=== PATIENT | male | born 1985 | race Caucasian/White ===

== ENCOUNTER 2019-08-26 13:19 | Emergency (ER) | payer OTHER, SELFPAY ==
--- NOTE | 2019-08-26 13:27 | ED.GENADULT ---
HPI - General Adult General Chief complaint: Upper Respiratory Infection Stated complaint: diarrhea/sore throat/cough/vomiting/devine Time Seen by Provider: 08/26/19 13:42 Source: patient Mode of arrival: ambulatory Limitations: no limitations History of Present Illness HPI narrative: 34-year-old male patient presents to the [facility] with complaints of cold symptoms for the past 1 to 2 weeks. Patient states he started off with some diarrhea that has gotten better. Patient states he has had cough, sneezing, fevers, body aches, nausea and vomiting. Patient states that he did vomit last night. Patient states that he has been able to keep down clear fluids today. Patient states he has been taking [id number] Mucinex and Tylenol for his symptoms. Denies being a smoker. Patient states he did get a flu shot this year. Related Data Allergies Allergy/AdvReac Type Severity Reaction Status Date / Time No Known Allergies Allergy Verified 08/26/19 13:41 Review of Systems Review of Systems: Narrative: CONSTITUTIONAL: Positive subjective fever, chills, and sweats. EYES: Denies visual changes, redness, or discharge. ENT: Positive rhinorrhea, congestion, sore throat, denies otalgia. CARDIOVASCULAR: Denies chest pain, palpitations, or edema. RESPIRATORY: Positive cough, denies dyspnea. GASTROINTESTINAL: Denies abdominal pain, positive nausea, vomiting, and diarrhea. GENITOURINARY: Denies dysuria or hematuria. SKIN: Denies rash or itching. MUSCULOSKELETAL: Denies back pain, joint pain, or myalgia. NEUROLOGIC: Denies headache, numbness, or weakness. PSYCHIATRIC: Denies anxiety or depression. PMFSH Social History Social History Smoking status: Never smoker Second hand tobacco smoke exposure: No Alcohol intake: current Comments At the time of my signature I agree with nursing past medical history, surgical, social, and family history. There is no relevant family history pertinent to the presenting complaint. Exam Narrative: Exam Narrative: GENERAL: Well-appearing, well-nourished, and in no acute distress. HEAD: Normocephalic, atraumatic. No tenderness noted to frontal maxillary sinuses on palpation EYES: PERRLA and EOMI. ENT: Nares with erythema and edema noted bilaterally, no rhinorrhea or epistaxis. Mucous membranes moist. Posterior pharynx with no erythema, tonsillar edema, exudates or lesions present. Bilateral TMs are clear no erythema or foreign bodies in the canal. NECK: Supple. No lymphadenopathy CHEST: Clear to auscultation. No respiratory distress. HEART: Regular rate and rhythm. No murmur heard. Normal peripheral pulses. ABDOMEN: Soft, nontender, nondistended, normal active bowel sounds. EXTREMITIES: Normal range of motion. No edema. SKIN: Warm, dry, no rash. NEURO: No focal deficits. Alert and oriented x3. Course Vital Signs Vital signs: Vital Signs Temperature 37.9 C H 08/26/19 13:36 Pulse Rate 73 08/26/19 13:36 Respiratory Rate 20 08/26/19 13:36 Blood Pressure 121/79 08/26/19 13:36 Pulse Oximetry 99 08/26/19 13:36 Temperature 37.9 C H 08/26/19 13:36 Pulse Rate 73 08/26/19 13:36 Respiratory Rate 20 08/26/19 13:36 Blood Pressure 121/79 08/26/19 13:36 Pulse Oximetry 99 08/26/19 13:36 Vital signs reviewed Medical Decision Making Differential Diagnosis Differential Diagnosis: Differential diagnosis: Allergic rhinitis, chronic sinusitis, tonsillitis, acute sinusitis, infectious mononucleosis, seasonal influenza, pertussis, diphtheria, meningococcal disease, viral syndrome, viral bronchitis, RSV. Discussed with patient that his influenza and strep tests are both negative today. Discussed with patient I am to discharge him home with some Ramon Landry to hopefully help with the cough as well as Zoë to help with the nausea and vomiting however if he develops worsening symptoms such as chest pain, shortness of breath abdom
[2019-08-26 13:36] VITALS: BP 121/79; PULSE 73; RESP 20; TEMP 37.9; O2SAT 99
== END 2019-08-26 14:08 | disposition home or self-care (01) ==
PROVIDERS: Emergency Provider Nurse Practitioner Family; PCP Internal Medicine
DX: J06.9 Acute upper respiratory infection, unspecified (principal); R05 Cough; R11.2 Nausea with vomiting, unspecified; R19.7 Diarrhea, unspecified; I10 Essential (primary) hypertension; F32.9 Major depressive disorder, single episode, unspecified
CPT/HCPCS: 87081; 87804; 87880; 99203; G0463

== ENCOUNTER 2022-05-19 11:41 | Emergency (ER) | payer OTHER, SELFPAY ==
[2022-05-19 14:12] VITALS: BP 143/108; PULSE 80; RESP 16; TEMP 36.8; O2SAT 98
--- NOTE | 2022-05-19 14:29 | ED.GENADULT ---
HPI - General Adult General Chief complaint: Upper Respiratory Infection Stated complaint: sore throat Time Seen by Provider: 05/19/22 14:29 Source: patient Mode of arrival: ambulatory Limitations: no limitations History of Present Illness HPI narrative: 36-year-old male patient presents to the [facility] with complaints of a sore throat that started this past Friday. Patient states he does get chronic strep throat pretty often. Patient denies any other sick symptoms at this time including fever, body aches or chills. Patient states he has been doing warm salt water gargles for treatment at home. Related Data Home Medications Medication Instructions Recorded Confirmed Descovy 05/19/22 Allergies Allergy/AdvReac Type Severity Reaction Status Date / Time No Known Allergies Allergy Verified 05/22/21 15:46 Review of Systems Review of Systems: CONSTITUTIONAL: Denies fever, chills, or sweats. EYES: Denies visual changes, redness, or discharge. ENT: Denies rhinorrhea, congestion, positive sore throat, denies otalgia. CARDIOVASCULAR: Denies chest pain, palpitations, or edema. RESPIRATORY: Denies cough or dyspnea. GASTROINTESTINAL: Denies abdominal pain, nausea, vomiting, or diarrhea. GENITOURINARY: Denies dysuria or hematuria. SKIN: Denies rash or itching. MUSCULOSKELETAL: Denies back pain, joint pain, or myalgia. NEUROLOGIC: Denies headache, numbness, or weakness. PSYCHIATRIC: Denies anxiety or depression. [facility] Past Medical History Medical History (Updated 05/19/22 @ 14:40 by CHRISSIE Willson) Depression History of strep sore throat Hypertension Social History Social History Smoking status: Never smoker Second hand tobacco smoke exposure: No Alcohol intake: current Drinks per week: 3 Substance use: never Comments At the time of my signature I agree with nursing past medical history, surgical, social, and family history. There is no relevant family history pertinent to the presenting complaint. Exam Narrative: GENERAL: Well-appearing, well-nourished, and in no acute distress. HEAD: Normocephalic, atraumatic. EYES: PERRLA and EOMI. ENT: Nares clear, no rhinorrhea or epistaxis. Mucous membranes moist. Posterior pharynx with slight erythema no tonsillar enlargement, no exudates no lesions present. NECK: Supple. No lymphadenopathy CHEST: Clear to auscultation. No respiratory distress. HEART: Regular rate and rhythm. No murmur heard. Normal peripheral pulses. ABDOMEN: Soft, nontender, nondistended, normal active bowel sounds. EXTREMITIES: Normal range of motion. No edema. SKIN: Warm, dry, no rash. NEURO: No focal deficits. Alert and oriented x3. Course Course Level of Care: Express Care Visit Vital Signs Vital signs: Vital signs reviewed. The patient has been informed that they may have pre-hypertension or Hypertension based on a BP reading in the department. I recommend that the patient call the primary care provider listed on their discharge instructions or a physician of their choice this week to arrange follow up for further evaluation of possible pre-hypertension or Hypertension Medical Decision Making MDM Narrative Medical decision making narrative: Discussed with patient that he is positive today for strep throat. Discussed with patient we will discharge him home with antibiotics for the strep throat infection. Did discuss patient about his hypertension today and highly advise that he follow-up with his primary doctor for continued evaluation and possible medication treatment. Differential Diagnosis Differential Diagnosis: Differential diagnosis: Allergic rhinitis, chronic sinusitis, tonsillitis, acute sinusitis, infectious mononucleosis, seasonal influenza, pertussis, diphtheria, meningococcal disease, viral syndrome, viral bronchitis, RSV, COVID-19 Viral pharyngitis, pharyngitis, group A strep, infectious mononucleosis, gono
== END 2022-05-19 14:40 | disposition home or self-care (01) ==
PROVIDERS: Emergency Provider Nurse Practitioner Family
DX: J02.0 Streptococcal pharyngitis (principal); I10 Essential (primary) hypertension
CPT/HCPCS: 87880; 99213; G0463

== ENCOUNTER 2022-09-25 09:11 | Outpatient (CLI) | payer OTHER, SELFPAY ==
--- NOTE | 2022-09-25 11:00 | NEURO_ITS ---
Impression: Patient reports a history of numbness in medial aspect of left hand. He also has a history of Cubital Tunnel Syndrome. # Normal nerve conduction study. # Normal needle/EMG exam. # Clinical correlation recommended. Motor Nerve Conduction Upper Extremities Median Nerve Conduction Velocity (m/sec) Terminal Latency (msec) Response Voltage(mV) Elbow-Wrist Wrist Elbow Wrist Right Left 59 2.7 4 7 Ulnar Nerve Conduction Velocity (m/sec) Terminal Latency (msec) Response Voltage(mV) Above Elbow Below Elbow Wrist Above Elbow Below Elbow Wrist Right Left 60 61 2.0 7 7 8 F-Wave Latency Median (ms) Ulnar (ms) Right Left 24.8 25.3 Sensory Nerve Conduction Upper Extremities Median Nerve Stimulation Terminal Latency (msec) Wrist/Digit Response Voltage (uV) Wrist Right Left 3.2/3.3 74/88 Ulnar Nerve Stimulation Terminal Latency (msec) Wrist/Digit Response Voltage (uV) Wrist Right Left 2.4 45 Radial Nerve Terminal Latency (msec) Response Voltage(mV) Right Left 1.5 25 Left Right Muscles Examined Fibrillation Fasciculation Scarcity Voltage Duration Left Right Left Right Left Right Left Right Left Right Deltoid Biceps X Brachioradialis Triceps X Pronator Teres X Ext Indicis X Ext Digitorum X Abd Poll Brev X 1st Dorsal Interosseus Abd Dig Min MTDD
== END 2022-09-25 09:12 | disposition home or self-care (01) ==
PROVIDERS: PCP Physician Assistant; Visit Provider Physician Assistant
DX: G56.22 Lesion of ulnar nerve, left upper limb (principal)
CPT/HCPCS: 95886; 95909

== ENCOUNTER 2023-08-16 13:16 | Emergency (ER) | payer OTHER, SELFPAY ==
--- NOTE | 2023-08-16 13:41 | ED.URI ---
HPI - URI/Sore Throat General Chief Complaint: Upper Respiratory Infection Stated Complaint: headache,cough,chills Time Seen by Provider: 08/16/23 13:53 Source: patient and RN notes reviewed Mode of arrival: ambulatory Limitations: no limitations History of Present Illness HPI Narrative: 38-year-old male presents with concern of for 2 day history of sinus congestion, cough, headache, chills. Reports he has been taking Tylenol and using a Neti pot. MD elicited complaint: cough and sinus pain Related Data Home Medications Medication Instructions Recorded Confirmed Descovy 05/19/22 atorvastatin 20 mg tablet mg 08/16/23 Allergies Allergy/AdvReac Type Severity Reaction Status Date / Time No Known Allergies Allergy Verified 05/22/21 15:46 Review of Systems Review of Systems: CONSTITUTIONAL: Denies malaise, chills. Did sweats or fever. EYES: Denies visual changes, redness, or discharge. ENT: Reports rhinorrhea, congestion, sinus pain CARDIOVASCULAR: Denies chest pain, palpitations, or edema. RESPIRATORY: Reports cough. Denies dyspnea. GASTROINTESTINAL: Denies abdominal pain, nausea, vomiting, diarrhea SKIN: Denies rash or itching. MUSCULOSKELETAL: Reports myalgia. NEUROLOGIC: Reports headache. All systems reviewed & are unremarkable except as noted in HPI and below PMFSH Past Medical History Medical History (Updated 08/16/23 @ 14:00 by Shannon Cheung NP) Depression History of strep sore throat Hypertension Social History Social History Smoking status: Never smoker Second hand tobacco smoke exposure: No Alcohol intake: current Drinks per week: 3 Substance use: never Comments At time of signature, agree with nursing past medical, surgical, social and family history. There is no relevant family history pertinent to the presenting complaint Exam Narrative: GENERAL: Well-appearing, well-nourished, and in no acute distress. HEAD: Normocephalic EYES: PERRLA, conjunctivae clear ENT: Nares clear, turbinates edematous and erythematous, clear discharge. Mucous membranes moist. TM pearly angel with sharp light reflex bilaterally; no tragal tenderness. Oropharynx not erythematous without lesions. Tonsils not enlarged and without exudate, no drooling, no hoarseness, no trismus, uvula midline. NECK: Supple. No lymphadenopathy CHEST: Clear to auscultation, breath sounds equal. No wheezing, rhonchi, rales, or stridor. No respiratory distress, speaks in full sentences. HEART: Regular rate and rhythm. No murmur heard. SKIN: Warm, dry, no rash. NEURO: Alert and oriented x3. PSYCH: Normal mood and affect Course Course Emergency Course: Patient is aware of diagnosis, understands and agrees to treatment plan. Anticipatory guidance given. Patient agrees to follow-up as directed and is aware of reasons to seek care at the emergency department. Portions of this record may have been created with voice recognition software Level of Care: Express Care Visit Vital Signs Vital signs: Reviewed. MDM - URI/Sore Throat MDM Narrative Medical decision making narrative: Differential diagnosis considered: Clemens virus, strep pharyngitis, allergic rhinitis, upper respiratory tract infection, sinusitis, rhinosinusitis, nasopharyngitis. viral pharyngitis, otitis media, otitis externa, pneumonia, bronchitis, viral cough syndrome, viral syndrome, and influenza. Exam findings show no acute concerns or changes; patient is non-toxic appearing and is in no distress. Patient is appropriate for outpatient treatment and follow-up. Lab Data Attestation: I reviewed the patient's lab results. Critical Care Time Critical Care Time Critical Care Time: No Discharge Plan Discharge Clinical Impression: COVID Patient Disposition: Home, Self-Care Condition: Stable Instructions: How to Recover from COVID-19 at Home (ED) Additional Instructions: Your rapid CO
[2023-08-16 13:43] VITALS: BP 121/92; PULSE 109; RESP 20; TEMP 37.8; O2SAT 98
== END 2023-08-16 14:05 | disposition home or self-care (01) ==
PROVIDERS: Emergency Provider Nurse Practitioner; PCP Physician Assistant
DX: U07.1 COVID-19 (principal); I10 Essential (primary) hypertension
CPT/HCPCS: 87426; 87804; 99213; G0463

== ENCOUNTER 2023-11-03 17:00 | Emergency (ER) | payer OTHER, SELFPAY ==
[2023-11-03 17:09] VITALS: BP 136/94; PULSE 72; RESP 16; TEMP 36.5; O2SAT 98
--- NOTE | 2023-11-03 17:18 | ED.SKABFB ---
HPI - Skin/Abscess/Foreign Bdy General Chief complaint: Skin/Abscess/Foreign Body Stated complaint: herpes II' outbreak Time Seen by Provider: 11/03/23 17:18 Source: patient Mode of arrival: ambulatory Limitations: no limitations History of Present Illness HPI narrative: 38-year-old male presents with complaint of herpes outbreak to penis for 3 days. Patient states history of herpes type to. Diagnosis sometime last year. Has had 3 outbreaks since. Is not on a preventative antiviral. All systems reviewed and negative except as noted above. Related Data Home Medications Medication Instructions Recorded Confirmed atorvastatin 20 mg tablet 20 mg PO DAILY 08/16/23 11/03/23 emtricitabine 200 mg-tenofovir 1 tablet PO DAILY 11/03/23 11/03/23 alafenamide fumarate 25 mg tablet (Descovy) hydrochlorothiazide 25 mg tablet 25 mg PO DAILY 11/03/23 11/03/23 Allergies Allergy/AdvReac Type Severity Reaction Status Date / Time No Known Allergies Allergy Verified 11/03/23 17:06 Review of Systems Review of Systems: CONSTITUTIONAL: Denies fever, chills, or sweats. EYES: Denies visual changes, redness, or discharge. ENT: Denies rhinorrhea, congestion, sore throat, or otalgia. CARDIOVASCULAR: Denies chest pain, palpitations, or edema. RESPIRATORY: Denies cough or dyspnea. GASTROINTESTINAL: Denies abdominal pain, nausea, vomiting, or diarrhea. GENITOURINARY: Denies dysuria or hematuria. SKIN: Denies rash or itching. Reports her pees outbreak to penis. MUSCULOSKELETAL: Denies back pain, joint pain, or myalgia. NEUROLOGIC: Denies headache, numbness, or weakness. PSYCHIATRIC: Denies anxiety or depression. All other systems reviewed are negative, except as documented in HPI. [facility] Past Medical History Medical History (Updated 11/03/23 @ 17:24 by Leanna Batres NP) Depression History of strep sore throat Hypertension Social History Social History Smoking status: Never smoker Second hand tobacco smoke exposure: No Alcohol intake: current Drinks per week: 3 Substance use: never Comments At time of signature, agree with nursing past medical, surgical, social and family history. There is no relevant family history pertinent to the presenting complaint. Exam Narrative: GENERAL: This is a well-nourished, well-developed patient, in no apparent distress. HEAD: normocephalic, atraumatic. EYES: PERRL. Sclera clear/white. Vision is grossly intact. EARS: External ears normal NOSE: External nose normal NECK: Neck supple, non-tender without lymphadenopathy, masses or thyromegaly. CARDIOVASCULAR: Regular rate and rhythm without murmurs, gallops, or rubs. RESPIRATORY: Clear to auscultation. Breath sounds equal bilaterally. No wheezes, rales, or rhonchi. SKIN: warm, Dry, intact with no suspicious rash, good texture and turgor. Several erythematous vesicular lesions to shaft of penis NEURO: awake, alert, and oriented to person, place and time. There were no obvious focal neurologic abnormalities. EXTREMITIES: No joint tenderness, effusion, or edema noted. Course Course Level of Care: Express Care Visit Vital Signs Vital signs: Vital Signs Temperature 36.5 C 11/03/23 17:09 Pulse Rate 72 11/03/23 17:09 Respiratory Rate 16 11/03/23 17:09 Blood Pressure 136/94 H 11/03/23 17:09 Pulse Oximetry 98 11/03/23 17:09 Oxygen Delivery Room Air 11/03/23 17:09 Temperature 36.5 C 11/03/23 17:09 Pulse Rate 72 11/03/23 17:09 Respiratory Rate 16 11/03/23 17:09 Blood Pressure 136/94 H 11/03/23 17:09 Pulse Oximetry 98 11/03/23 17:09 Oxygen Delivery Room Air 11/03/23 17:09 reviewed MDM - Skin/Abscess/Foreign Bdy MDM Narrative Medical decision making narrative: Patient is aware of diagnosis, understands and agrees to treatment plan. Anticipatory guidance given. Patient agrees to follow-up as directed and i
== END 2023-11-03 17:27 | disposition home or self-care (01) ==
PROVIDERS: Emergency Provider Nurse Practitioner Family; PCP Physician Assistant
DX: A60.01 Herpesviral infection of penis (principal); I10 Essential (primary) hypertension; F32.A Depression, unspecified
CPT/HCPCS: 99213; G0463

== ENCOUNTER 2024-01-01 12:35 | Emergency (ER) | payer OTHER, SELFPAY ==
[2024-01-01 13:03] VITALS: BP 118/93; PULSE 90; RESP 16; TEMP 36.6; O2SAT 99
--- NOTE | 2024-01-01 13:37 | ED.MALEGU ---
HPI - Male Genitourinary General Chief complaint: Urogenital-Male Stated complaint: outbreak Time Seen by Provider: 01/01/24 13:37 Source: patient Mode of arrival: ambulatory Limitations: no limitations History of Present Illness HPI Narrative: 38 yo M presents with c/o herpes lesions to penis starting yesterday. hx of outbreak beginning of october. Has not talked with primary care physician regarding a daily antibiotic. all systems reviewed and negative except as noted above. Related Data Home Medications Medication Instructions Recorded Confirmed atorvastatin 20 mg tablet 20 mg PO DAILY 08/16/23 11/03/23 emtricitabine 200 mg-tenofovir 1 tablet PO DAILY 11/03/23 11/03/23 alafenamide fumarate 25 mg tablet (Descovy) hydrochlorothiazide 25 mg tablet 25 mg PO DAILY 11/03/23 11/03/23 methylphenidate HCl 10 mg tablet 10 mg PO BID 01/01/24 01/01/24 Allergies Allergy/AdvReac Type Severity Reaction Status Date / Time No Known Allergies Allergy Verified 01/01/24 13:16 Review of Systems Review of Systems: CONSTITUTIONAL: Denies fever, chills, or sweats. EYES: Denies visual changes, redness, or discharge. ENT: Denies rhinorrhea, congestion, sore throat, or otalgia. CARDIOVASCULAR: Denies chest pain, palpitations, or edema. RESPIRATORY: Denies cough or dyspnea. GASTROINTESTINAL: Denies abdominal pain, nausea, vomiting, or diarrhea. GENITOURINARY: Denies dysuria or hematuria. Reports herpes lesions to penis. SKIN: Denies rash or itching. MUSCULOSKELETAL: Denies back pain, joint pain, or myalgia. NEUROLOGIC: Denies headache, numbness, or weakness. PSYCHIATRIC: Denies anxiety or depression. All other systems reviewed are negative, except as documented in HPI. [facility] Past Medical History Medical History (Updated 01/01/24 @ 13:45 by Leanna Batres NP) Depression History of strep sore throat Hypertension Social History Social History Smoking status: Never smoker Second hand tobacco smoke exposure: No Alcohol intake: current Drinks per week: 3 Substance use: never Comments At time of signature, agree with nursing past medical, surgical, social and family history. There is no relevant family history pertinent to the presenting complaint. Exam Narrative: GENERAL: This is a well-nourished, well-developed patient, in no apparent distress. HEAD: normocephalic, atraumatic. EYES: PERRL. Sclera clear/white. Vision is grossly intact. EARS: External ears normal NOSE: External nose normal NECK: Neck supple, non-tender without lymphadenopathy, masses or thyromegaly. CARDIOVASCULAR: Regular rate and rhythm without murmurs, gallops, or rubs. RESPIRATORY: Clear to auscultation. Breath sounds equal bilaterally. No wheezes, rales, or rhonchi. SKIN: warm, Dry, intact with no suspicious lesions or rash, good texture and turgor. NEURO: awake, alert, and oriented to person, place and time. There were no obvious focal neurologic abnormalities. EXTREMITIES: No joint tenderness, effusion, or edema noted. Course Course Level of Care: Express Care Visit Vital Signs Vital signs: Vital Signs Temperature 36.6 C 01/01/24 13:03 Pulse Rate 90 01/01/24 13:03 Respiratory Rate 16 01/01/24 13:03 Blood Pressure 118/93 H 01/01/24 13:03 Pulse Oximetry 99 01/01/24 13:03 Oxygen Delivery Room Air 01/01/24 13:03 Temperature 36.6 C 01/01/24 13:03 Pulse Rate 90 01/01/24 13:03 Respiratory Rate 16 01/01/24 13:03 Blood Pressure 118/93 H 01/01/24 13:03 Pulse Oximetry 99 01/01/24 13:03 Oxygen Delivery Room Air 01/01/24 13:03 Reviewed MDM - Male Genitourinary MDM Narrative Medical decision making narrative: Patient is aware of diagnosis, understands and agrees to treatment plan. Anticipatory guidance given. Patient agrees to follow-up as directed and is aware of reasons to seek care at the emergency department
== END 2024-01-01 13:47 | disposition home or self-care (01) ==
PROVIDERS: Emergency Provider Nurse Practitioner Family; PCP Physician Assistant
DX: A60.01 Herpesviral infection of penis (principal); I10 Essential (primary) hypertension
CPT/HCPCS: 99213; G0463

== ENCOUNTER 2024-06-26 14:57 | Emergency (ER) | payer OTHER, SELFPAY ==
[2024-06-26 15:05] VITALS: BP 127/91; PULSE 100; RESP 16; TEMP 36.4; O2SAT 100
--- NOTE | 2024-06-26 15:23 | ED.EYEPROB ---
HPI - Eye Problem General Chief complaint: Eye Problems Stated complaint: Right Eye Irritation Source: patient, RN notes reviewed and old records reviewed Mode of arrival: ambulatory Limitations: no limitations Related Data Home Medications ?Medication ?Instructions ?Recorded ?Confirmed ?Last Taken ?Type atorvastatin 20 mg tablet 20 mg PO DAILY 08/16/23 06/26/24 Unknown History emtricitabine 200 mg-tenofovir 1 tablet PO DAILY 11/03/23 06/26/24 Unknown History alafenamide fumarate 25 mg tablet (Descovy) hydrochlorothiazide 25 mg tablet 25 mg PO DAILY 11/03/23 06/26/24 Unknown History methylphenidate HCl 10 mg tablet 10 mg PO BID 01/01/24 06/26/24 Unknown History Allergies Allergy/AdvReac Type Severity Reaction Status Date / Time No Known Allergies Allergy Verified 06/26/24 14:59 Review of Systems Review of Systems: All systems reviewed & are unremarkable except as noted in HPI and below Constitutional: Constitutional: Reports no additional constitutional complaints ENT: Reports system reviewed and no additional complaints, except as documented Cardiovascular: Cardiovascular: Reports no additional cardiovascular complaints Respiratory: Respiratory: Reports no additional respiratory complaints Gastrointestinal: Gastrointestinal: Reports no additional gastrointestinal complaints [facility] Past Medical History Medical History (Updated 01/02/24 @ 00:00 by Carmelita Gaona) Depression History of strep sore throat Hypertension Social History Social History Smoking status: Never smoker Second hand tobacco smoke exposure: No Alcohol intake: current Drinks per week: 3 Substance use: never Comments At the time of my signature, I reviewed and agree with the nursing past medical, surgical, social, and family history. There is no relevant family history pertinent to the patient complaint. Exam Const: General: cooperative, no acute distress, alert and awake Orientation/consciousness: oriented to person, oriented to place and oriented to time HENMT: Head: normal to inspection Resp: Effort & Inspection: normal respiratory effort and able to speak in complete sentences Auscultation: clear to auscultation bilaterally, no crackles, no rales, no rhonchi and no wheezes Cardio: Palpation: normal PMI Rate: regular rate Rhythm: regular rhythm Heart sounds: S1 normal heart sound present and S2 normal heart sound present Neuro: General: oriented to person, oriented to place and oriented to time Cranial nerves: Yes CN's II-XII intact bilaterally Psych: Appearance: grossly normal Thought process: Normal thought process present Insight: Good insight present (Psych) Judgement: Good judgement present (Psych) Course Course Level of Care: Express Care Visit Vital Signs Vital signs: Vital Signs Temperature 97.5 F L 06/26/24 15:05 Pulse Rate 100 06/26/24 15:05 Respiratory Rate 16 06/26/24 15:05 Blood Pressure 127/91 H 06/26/24 15:05 Pulse Oximetry 100 06/26/24 15:05 Oxygen Delivery Room Air 06/26/24 15:05 Temperature 97.5 F L 06/26/24 15:05 Pulse Rate 100 06/26/24 15:05 Respiratory Rate 16 06/26/24 15:05 Blood Pressure 127/91 H 06/26/24 15:05 Pulse Oximetry 100 06/26/24 15:05 Oxygen Delivery Room Air 06/26/24 15:05 Reviewed Discharge Plan Discharge Patient Language: Divehi Prescriptions: No Action hydrochlorothiazide 25 mg tablet 25 mg PO DAILY Descovy 200-25 mg tablet 1 tablet PO DAILY valacyclovir 1 gram tablet 1,000 mg PO DAILY 5 Days Qty: 5 0RF atorvastatin 20 mg tablet 20 mg PO DAILY methylphenidate HCl 10 mg tablet 10 mg PO BID valacyclovir 1 gram tablet 1,000 mg PO DAILY 5 Days Qty: 5 0RF escitalopram oxalate 20 mg tablet 20 mg PO DAILY Qty: 30 2RF bupropion HCl [Wellbutrin SR] 200 mg tablet sustained-release 12 hr 200 mg PO QAM Qty: 30 4RF Follow-up/Referrals: Denny,HARSHIL Espinal [Primary Care Provider] -
== END 2024-06-26 15:41 | disposition left against medical advice (07) ==
LOC: EXPCOLL 14:59
PROVIDERS: Emergency Provider Nurse Practitioner Family; PCP Physician Assistant
DX: Z53.21 Procedure and treatment not carried out due to patient leaving prior to being seen by health care provider (principal)
CPT/HCPCS: 99199

== ENCOUNTER 2024-06-29 16:02 | Emergency (ER) | payer OTHER, SELFPAY ==
[2024-06-29 16:12] VITALS: BP 129/94; PULSE 89; RESP 16; TEMP 36.8; O2SAT 99
--- NOTE | 2024-06-29 16:13 | ED_ITS ---
HPI - Eye Problem General Chief complaint: Eye Problems Stated complaint: [place] eye symptoms Time Seen by Provider: 06/29/24 16:15 Source: patient Mode of arrival: ambulatory Limitations: no limitations History of Present Illness HPI Narrative: Alon is a 39-year-old male patient to the clinic today with complaints of right possible pinkeye. He reports he has had eye irritation, watering, and itchiness for the past 2-3 days. States the eye lid has now become swollen. He denies any fevers, chills, body aches, or orbital pain. No visual changes Related Data Home Medications ?Medication ?Instructions ?Recorded ?Confirmed ?Last Taken ?Type atorvastatin 20 mg tablet 20 mg PO DAILY 08/16/23 06/26/24 Unknown History emtricitabine 200 mg-tenofovir 1 tablet PO DAILY 11/03/23 06/26/24 Unknown History alafenamide fumarate 25 mg tablet (Descovy) hydrochlorothiazide 25 mg tablet 25 mg PO DAILY 11/03/23 06/26/24 Unknown History methylphenidate HCl 10 mg tablet 10 mg PO BID 01/01/24 06/26/24 Unknown History Allergies Allergy/AdvReac Type Severity Reaction Status Date / Time No Known Allergies Allergy Verified 06/26/24 14:59 Review of Systems Review of Systems: Pertinent positives per HPI. Patient denies any fever, chills, rash, headache, visual changes, dizziness, cough, runny nose, sore throat, shortness of breath, chest pain, palpitations, nausea, vomiting, diarrhea, constipation, abdominal pain, or any urinary issues. [facility] Past Medical History Medical History (Updated 06/29/24 @ 16:17 by Alber Galeano APRN) Depression History of strep sore throat Hypertension Social History Social History Smoking status: Never smoker Second hand tobacco smoke exposure: No Alcohol intake: current Drinks per week: 3 Substance use: never Comments At the time of my signature, I reviewed and agree with the nursing past medical, surgical, social, and family history. There is no relevant family history pertinent to the patient complaint. Exam Narrative: General: Well-developed, well nourished, in no apparent distress Head: Normocephalic, atraumatic Eyes: Pupils equally round and reactive to light bilaterally, EOM intact, left sclera and conjunctive clear, no discharge, lids normal, right sclera and conjunctiva injected with watery discharge and upper and lower lid swelling, nontender to palpation, no erythema or redness surrounding the eye Ears: TMs intact and clear, ear canals clear, no drainage, grossly hearing normal. Nose: Nares patent, no discharge, no inflammation, no sinus tenderness. Mouth: Oropharynx without lesions or masses, good dentition, MMM. Neck: Supple, trachea midline, no enlargement of anterior or posterior cervical nodes, no thyroid masses or goiter palpable. Cardio: Regular rate and rhythm, s1 and s2 normal, no murmur appreciated. Resp: Clear to auscultation bilaterally anteriorly and posteriorly, no rhonchi, rales, wheezing or rubs Course Course Emergency Course: Portions of this record may have been created with voice recognition software. Level of Care: Express Care Visit Vital Signs Vital signs: Vital Signs Temperature 36.8 C 06/29/24 16:12 Pulse Rate 89 06/29/24 16:12 Respiratory Rate 16 06/29/24 16:12 Blood Pressure 129/94 H 06/29/24 16:12 Pulse Oximetry 99 06/29/24 16:12 Oxygen Delivery Room Air 06/29/24 16:12 Temperature 36.8 C 06/29/24 16:12 Pulse Rate 89 06/29/24 16:12 Respiratory Rate 16 06/29/24 16:12 Blood Pressure 129/94 H 06/29/24 16:12 Pulse Oximetry 99 06/29/24 16:12 Oxygen Delivery Room Air 06/29/24 16:12 Vital signs reviewed MDM - Eye Problem MDM Narrative Medical decision making narrative: At the time of visit patient is resting comfortably on the exam table. Patient appears to be nontoxic. Plan: I suspect patient has conjunctivitis with localized eye lid swelling. Prescription for TobraDex eyedrops was sent to the pharmacy. Supportive measures were discussed with the patient and they voiced understanding discharge instructions and agrees to treatment plan. Return precautions reviewed Differential Diagnosis Differential diagnosis: Likely corneal abrasion, conjunctivitis, acute iritis, hyphema, periorbital cellulitis, subconjunctival hemorrhage, glaucoma, corneal ulcer and ruptured globe Discharge Plan Discharge Clinical Impression: Conjunctivitis Qualifiers: Conjunctivitis type: acute Acute conjunctivitis type: unspecified Laterality: right Qualified Code(s): H10.31 - Unspecified acute conjunctivitis, right eye Patient Disposition: Home, Self-Care Condition: Stable Instructions: Antibiotic Form, Conjunctivitis (ED) Additional Instructions: Conjunctivitis is considered contagious for 24 hours while on the antibiotic. Practice good hand washing techniques Avoid touching eyes Instill eyedrops as prescribed-tobradex May use warm moist washcloth to help remove eye discharge If eyes are matted shut-do not pry eyes open-use a warm moist cloth to loosen matting and wipe matter away from eye May take Tylenol/Motrin as needed for pain or fever May take Benadryl as needed for itching Follow-up with your PCP in 3-5 days if symptoms persist or sooner if they worsen Go to the emergency room if you develop any fever that is not controlled by Tylenol or Motrin, loss of vision, eye pain, increase eye swelling,visual changes, headache, confusion, lethargy, weakness, chest pain, or shortness of breath. Patient Language: Chadian Prescriptions: New tobramycin-dexamethasone 0.3-0.1 % drops,suspension 1 drp RIGHT EYE QID 7 Days Qty: 10 0RF No Action hydrochlorothiazide 25 mg tablet 25 mg PO DAILY Descovy 200-25 mg tablet 1 tablet PO DAILY valacyclovir 1 gram tablet 1,000 mg PO DAILY 5 Days Qty: 5 0RF atorvastatin 20 mg tablet 20 mg PO DAILY methylphenidate HCl 10 mg tablet 10 mg PO BID valacyclovir 1 gram tablet 1,000 mg PO DAILY 5 Days Qty: 5 0RF escitalopram oxalate 20 mg tablet 20 mg PO DAILY Qty: 30 2RF bupropion HCl [Wellbutrin SR] 200 mg tablet sustained-release 12 hr 200 mg PO QAM Qty: 30 4RF Follow-up/Referrals: Denny,HARSHIL Espinal [Primary Care Provider] - Time of Disposition: 16:18 Quality NIHSS Nursing Documentation ED NIHSS nursing documentation: reviewed/agree
== END 2024-06-29 16:20 | disposition home or self-care (01) ==
PROVIDERS: Emergency Provider Nurse Practitioner Family; PCP Physician Assistant
DX: H10.31 Unspecified acute conjunctivitis, right eye (principal); I10 Essential (primary) hypertension
CPT/HCPCS: 99213; G0463